=== PATIENT | female | born 1975 | race Hispanic/Latino ===

== ENCOUNTER 2024-12-26 11:02 | Emergency (ER) | payer OTHER ==
[~2024-12-26] VITALS: Ht 162.6 cm; Wt 74.4 kg
[~2024-12-26 11:02] MED LIST: AMITRIPTYLINE H25 MG PO; CHLORDIAZEPOXI1 EACH PO; DICYCLOMINE HCL20 MG PO; DIPHENOXYLATE-1 EACH PO; HYDROCODON-ACE1 EA12 PO; LEVSIN-SL0.125 MG SL; LEXAPRO10 MG PO; MIDODRINE; MIDODRINE HCL10 MG PO; NITROFURANTOIN100 MG PO; NUCYNTA ER200 MG PO; NUCYNTA100 MG PO; PANTOPRAZOLE SO20 MG PO; PENTASA500 MG PO; PREDNISONE10 MG PO; SOMA350 MG PO; TIZANIDINE HCL4 MG PO; TYLENOL WITH C1 EACH PO; VALIUM5 MG PO; Z.0.BACLOFEN10 MG PO; Z.0.VALIUM10 MG PO; Z.0.ZANAFLEX4 M1 PO; ZANAFLEX4 MG PO; [UNRECOGNIZED DRUG - OTHER] PO
[2024-12-26 11:11] VITALS: TEMP 97.8
[2024-12-26] MEDS ORDERED: SODIUM CHLORIDE FLUSH 10 ML SYR IV PRN (11:30)
[2024-12-26 11:32] LABS: BASOPHILS % 0.3 % (0.0-1.0); EOSINOPHILS % 1.0 % (0.0-6.0); LYMPHOCYTES % 18.2 % (18.0-39.1); MONOCYTES % 6.9 % (4.4-11.3); NEUTROPHILS % 73.3 % (38.7-80.0); RED CELL DISTRIBUTION WIDTH 12.9 % (11.7-14.4)
[2024-12-26] MEDS: METOCLOPRAMIDE HCL 10 MG/2ML VIAL IV ONE (11:51)
[2024-12-26] MEDS: SODIUM CHLORIDE 0.9% 1000ML 1,000 ML IV ONE ×2 (11:52)
[2024-12-26 11:53] LABS: EST GLOMERULAR FILTRATION RATE 49 ML/MIN (>=60)
[2024-12-26 14:01] VITALS: PULSE 68; RESP 18; O2SAT 100
== END 2024-12-26 14:07 | disposition home or self-care (01) ==
LOC: ER 11:05
DX: R55 Syncope and collapse (principal); R11.2 Nausea with vomiting, unspecified; R51.9 Headache, unspecified; M54.2 Cervicalgia; R94.31 Abnormal electrocardiogram [ECG] [EKG]; Z87.19 Personal history of other diseases of the digestive system
CPT/HCPCS: 36415; 70450; 71045; 72125; 80053; 82948; 84484; 84702; 85025; 93005; 94760; 99284; J2765; J7030